=== PATIENT | male | born 1995 | race Caucasian/White ===

== ENCOUNTER 2021-07-22 19:09 | Inpatient (IN) ==
--- NOTE | 2021-07-22 20:34 | Emergency Department Note ---
Impression & Plan Depression with suicidal ideation ED Provider Note NAME: FELICITY MANUEL AGE: 25 SEX: M ARRIVES VIA: Walk-In INFORMANT: Patient ED PROVIDER(S): Champ Dominguez MD CHIEF COMPLAINT: Suicidal ideation PLAN: Disposition: Inpatient psychiatric admission. 3S. MEDICAL DECISION MAKING: The patient is a pleasant 25-year-old gentleman with a past medical history of chronic back pain/sciatica, history of polysubstance abuse with prior history of meth and opioid abuse, depression, suicidal ideation and attempt remotely where he reports his diagnosis may be bipolar disorder as well as borderline personality disorder but is unsure of if a definitive diagnosis has been assigned who presents to the emergency department accompanied by his for evaluation of suicidal ideation and depression that is been ongoing for the past 2 weeks and a more severe form where he has wanted to kill himself and 2 weeks ago considered cutting his wrists. He believes that his increased depression over the past month or so may have been provoked by his relapse into using meth at the end of March into April. He reports he has not been using meth since then. He reports he has tried antidepressants in the past but he believes that these have provoked his suicidal ideation and aggressive behaviors. He has chronic lumbar back pain which he describes as sciatica to his left leg and has followed with pain management and was recently prescribed topical Voltaren gel as well as Lamictal which he reports he did not take because of his concern that this may provoke mood changes. He does see a psychiatrist here but only recently establish care via telehealth. He previously followed in [place] where he lived for his mental health condition. He reports chronic nasal congestion likely due to allergies and denies any fevers, chills, nausea, vomiting, diarrhea. He denies any loss of bowel control or urinary retention. The patient recently this past summer. His is at the bedside. The patient is interested in inpatient treatment and is willing to be admitted voluntarily. On arrival patient is melancholy appearing but no acute distress, afebrile stable vital signs. He endorses suicidal ideation with intermittent thoughts of a plan. He reports feeling hopelessness but also describes that he wants help to stabilize his mood so he can move on with a normal life. He has mild discomfort of the left lower lumbar region extending distally in the sciatic distribution. There is no midline tenderness to palpation or step-offs. He has normal strength in bilateral lower extremities. L5 intact bilaterally. Reflexes within normal limits. WBC 14.4K, nonspecific. H/H and platelets within normal limits. She without metabolic acidosis. Electrolytes LFTs without significant abnormality. TSH within normal limits. UA with WBCs and leuk esterase albeit with epithelial cells present and no bacteria. Given the patient denies any acute urinary symptoms, reasonable to defer treatment at this time awaiting urine culture to inform need for treatment. Urine drug screen is positive for marijuana and otherwise unremarkable. COVID-19 PCR was negative. Influenza and RSV PCR also negative. Patient was medically cleared. Referral was made to S. for admission. The patient was accepted and admitted involuntarily under a 201. Triage Nursing notes reviewed and agree them. Prior medical records reviewed Vital Signs: reviewed and remarkable for no significant abnormalities Differential diagnosis: Mood disorder, infection, hypoglycemia, electrolyte abnormalities, cardiac sources, intracerebral event, toxicologic, trauma, neurologic, as well as other pathologies. ER treatment provided: See below. Laboratory studies: See below HPI: The patient is a pleasant 25-year-old gentleman with a past medical history of chronic back pain/sciatica, history of polysubstance abuse with prior history of meth and opioid abuse, depression, suicidal ideation and attempt remotely where he reports his diagnosis may be bipolar disorder as well as borderline personality disorder but is unsure of if a definitive diagnosis has been assigned who presents to the emergency department accompanied by his for evaluation of suicidal ideation and depression that is been ongoing for the past 2 weeks and a more severe form where he has wanted to kill himself and 2 weeks ago considered cutting his wrists. He believes that his increased depression over the past month or so may have been provoked by his relapse into using meth at the end of March into April. He reports he has not been using meth since then. He reports he has tried antidepressants in the past but he believes that these have provoked his suicidal ideation and aggressive behaviors. He has chronic lumbar back pain which he describes as sciatica to his left leg and has followed with pain management and was recently prescribed topical Voltaren gel as well as Lamictal which he reports he did not take because of his concern that this may provoke mood changes. He does see a psychiatrist here but only recently establish care via telehealth. He previously followed in [place] where he lived for his mental health condition. He reports chronic nasal congestion likely due to allergies and denies any fevers, chills, nausea, vomiting, diarrhea. He denies any loss of bowel control or urinary retention. The patient recently this past summer. His is at the bedside. The patient is interested in inpatient treatment and is willing to be admitted voluntarily. ROS: See above HPI for pertinent positives & negatives. A total of 10 systems reviewed and were otherwise negative. PAST MEDICAL HISTORY:See Below PAST SURGICAL HISTORY:See Below FAMILY HISTORY:See Below SOCIAL HISTORY:See Below HOME MEDICATIONS:See Below ALLERGIES:See Below VITALS:See Below PHYSICAL EXAMINATION: GENERAL: Awake, alert, melancholy-appearing, in no distress HENT: Normocephalic, atraumatic. Oropharynx unremarkable. EYES: Normal conjunctiva. Sclera non-icteric. NECK: Supple. No nuchal rigidity. FROM. No JVD. RESPIRATORY: Clear to auscultation. CARDIAC: Regular rate, normal rhythm. Extremities warm and well perfused. Pulses equal. ABDOMEN: Soft, non-distended. No tenderness to palpation. No rebound or guarding. No masses. RECTAL: Deferred. MUSCULOSKELETAL: Chest examination reveals no tenderness. The back is symmetrical on inspection without obvious abnormality. Mild left lower lumbar discomfort without discrete tenderness that extends distally in the sciatic distribution. No midline tenderness to palpation or step-offs. There is no CVA tenderness to palpation. No joint edema. LOWER EXTREMITIES: Calves are equal size bilaterally and non-tender. No edema. No discoloration. NEURO: Normal sensorium. No sensory or motor deficits noted. 5/5 strength and SILT x 4 extremities. DTRs wnl. L5 intact bilaterally. SKIN: No rash or jaundice noted. PSYCH: Endorses depression and active suicidal ideation with plan. Endorses hopelessness. Denies auditory hallucinations. Champ Dominguez MD Past Med/Surg History Medical History Chronic low back pain Depression Polysubstance abuse Sciatica Suicidal ideation Family History Other Family history non-contributory Social History Smoking Status: Current every day smoker Tobacco Type: Cigarettes and E-cigarettes / Vaping Allergies Allergies Allergy/AdvReac Type Severity Reaction Status Date / Time lithium Allergy Severe neurological Verified 07/22/21 19:40 complications tree nut Allergy Severe Anaphylaxis Verified 07/22/21 19:40 atorvastatin [From Lipitor] Allergy Intermediate Hives Verified 07/22/21 19:40 Home Meds Home Medications Medication Instructions Recorded Confirmed diclofenac sodium 75 mg 75 mg PO BID 07/22/21 07/22/21 tablet,delayed release Results & Data (ED) Vital Signs Vital Signs - 24 hr 07/22/21 19:18 07/22/21 23:35 Temperature 37.0 C Temperature Source Temporal Artery Scan Pulse Rate [Left Apical] 89 74 Respiratory Rate 16 20 Respiratory Effort / Characteristics Non-Labored Respiratory Depth Normal Blood Pressure [Left Arm] 130/85 116/73 Blood Pressure Mean [Left Arm] 100 87 Blood Pressure Position [Left Arm] Sitting Pulse Oximetry 95 96 Oxygen Delivery Method Room Air Room Air Sepsis Recent Fever Within 48 Hours No Sepsis New/Unexplained Change in Mental Status No Sepsis Action Taken by Nursing No Action Required Laboratory Data Attestation: I reviewed the patient's lab results. Result diagrams: 07/22/21 20:41 07/22/21 20:41 Lab Results 07/22/21 07/22/21 07/22/21 Range/Units 20:08 20:41 20:41 WBC 14.48 H (4.8-10.8) K/uL RBC 4.47 L (4.7-6.1) M/uL Hgb 15.3 (14.0-18.0) g/dL Hct 44.9 (42-52) % MCV 100.4 H (80-100) fL MCH 34.2 H (25-34) pg MCHC 34.1 (32-36) g/dL RDW Std Deviation 45.9 (36.4-46.3) fL RDW Coeff of Alek 12.6 (11.5-14.5) % Plt Count 302 (130-400) K/uL MPV 10.4 (7.4-10.4) fL Immature Gran % (Auto) 0.3 % Neut % (Auto) 69.1 % Lymph % (Auto) 20.5 % [place] % (Auto) 7.0 % Eos % (Auto) 2.9 % Baso % (Auto) 0.2 % Neut # (Auto) 10.00 H (1.4-6.5) K/uL Lymph # (Auto) 2.97 (1.2-3.4) K/uL [place] # (Auto) 1.01 H (0.11-0.59) K/uL Eos # (Auto) 0.42 (0-0.5) K/uL Baso # (Auto) 0.03 (0-0.2) K/uL Immature Gran # (Auto) 0.05 H (0.00-0.02) K/uL Sodium 139 (136-145) mmol/L Potassium 4.1 (3.5-5.1) mmol/L Chloride 106 (98-107) mmol/L Carbon Dioxide 29 (21-32) mmol/L Anion Gap 5.0 (3-11) BUN 14 (7-18) mg/dl Creatinine 0.93 (0.6-1.4) mg/dl Est Cr Clr Drug Dosing Not Reportable Est GFR ( Amer) 130.9 ml/min Est GFR (Non-Af Amer) 112.9 ml/min BUN/Creatinine Ratio 15.2 (10-20) Glucose 93 (70-99) mg/dl Calcium 8.8 (8.5-10.1) mg/dl Total Bilirubin 0.2 (0.2-1) mg/dl AST 21 (15-37) U/L ALT 39 (12-78) Alkaline Phosphatase 93 (45-117) U/L Total Protein 8.1 (6.4-8.2) gm/dl Albumin 3.6 (3.4-5.0) gm/dl Globulin 4.5 H (2.5-4.0) gm/dl Albumin/Globulin Ratio 0.8 L (0.9-2) TSH 3.890 (0.300-4.500) uIu/ml Urine Color Urine Appearance (Clear) Urine pH (4.5-7.5) Ur Specific [place] (1.000-1.030) Urine Protein (Negative) Urine Glucose (UA) (Negative) Urine Ketones (Negative) Urine Blood (Negative) Urine Nitrite (Negative) Urine Bilirubin (Negative) Urine Urobilinogen (Negative) Ur Leukocyte Esterase (Negative) Urine WBC (Auto) (0-5) /hpf Urine RBC (Auto) (0-4) /hpf U Hyaline Cast (Auto) (0-5) /lpf U Epithel Cells (Auto) (0-5) /lpf Urine Bacteria (Auto) (Negative) Salicylates (2.8-20) mg/dl Urine Opiates Screen (Neg) Ur Methadone, Qual (Neg) Acetaminophen (10-30) ug/ml Urine Barbiturates (Neg) Ur Phencyclidine (PCP) (Neg) U Amphetamin/Meth Scrn (Neg) MDMA (Ecstasy) Screen (Neg) U Benzodiazepines Scrn (Neg) Ur Cocaine Metabolite (Neg) U Marijuana (THC) Screen (Neg) Ethyl Alcohol mg/dL (0-3) mg/dl SARS-CoV-2 (PCR) NEGATIVE (Negative) Influenza Type A (PCR) Negative (Neg) Influenza Type B (PCR) Negative (Neg) RSV (RT-PCR) Negative (Neg) 07/22/21 07/22/21 07/22/21 Range/Units 20:41 20:41 20:54 WBC (4.8-10.8) K/uL RBC (4.7-6.1) M/uL Hgb (14.0-18.0) g/dL Hct (42-52) % MCV (80-100) fL MCH (25-34) pg MCHC (32-36) g/dL RDW Std Deviation (36.4-46.3) fL RDW Coeff of Alek (11.5-14.5) % Plt Count (130-400) K/uL MPV (7.4-10.4) fL Immature Gran % (Auto) % Neut % (Auto) % Lymph % (Auto) % [place] % (Auto) % Eos % (Auto) % Baso % (Auto) % Neut # (Auto) (1.4-6.5) K/uL Lymph # (Auto) (1.2-3.4) K/uL [place] # (Auto) (0.11-0.59) K/uL Eos # (Auto) (0-0.5) K/uL Baso # (Auto) (0-0.2) K/uL Immature Gran # (Auto) (0.00-0.02) K/uL Sodium (136-145) mmol/L Potassium (3.5-5.1) mmol/L Chloride (98-107) mmol/L Carbon Dioxide (21-32) mmol/L Anion Gap (3-11) BUN (7-18) mg/dl Creatinine (0.6-1.4) mg/dl Est Cr Clr Drug Dosing Est GFR ( Amer) ml/min Est GFR (Non-Af Amer) ml/min BUN/Creatinine Ratio (10-20) Glucose (70-99) mg/dl Calcium (8.5-10.1) mg/dl Total Bilirubin (0.2-1) mg/dl AST (15-37) U/L ALT (12-78) Alkaline Phosphatase (45-117) U/L Total Protein (6.4-8.2) gm/dl Albumin (3.4-5.0) gm/dl Globulin (2.5-4.0) gm/dl Albumin/Globulin Ratio (0.9-2) TSH (0.300-4.500) uIu/ml Urine Color Yellow Urine Appearance Clear (Clear) Urine pH 6.5 (4.5-7.5) Ur Specific [place] 1.021 (1.000-1.030) Urine Protein Negative (Negative) Urine Glucose (UA) Negative (Negative) Urine Ketones Negative (Negative) Urine Blood Negative (Negative) Urine Nitrite Negative (Negative) Urine Bilirubin Negative (Negative) Urine Urobilinogen Negative (Negative) Ur Leukocyte Esterase 2+ H (Negative) Urine WBC (Auto) >30 H (0-5) /hpf Urine RBC (Auto) 0-4 (0-4) /hpf U Hyaline Cast (Auto) 1-5 (0-5) /lpf U Epithel Cells (Auto) 10-20 H (0-5) /lpf Urine Bacteria (Auto) Negative (Negative) Salicylates < 1.7 L (2.8-20) mg/dl Urine Opiates Screen (Neg) Ur Methadone, Qual (Neg) Acetaminophen < 2 L (10-30) ug/ml Urine Barbiturates (Neg) Ur Phencyclidine (PCP) (Neg) U Amphetamin/Meth Scrn (Neg) MDMA (Ecstasy) Screen (Neg) U Benzodiazepines Scrn (Neg) Ur Cocaine Metabolite (Neg) U Marijuana (THC) Screen (Neg) Ethyl Alcohol mg/dL < 3.0 (0-3) mg/dl SARS-CoV-2 (PCR) (Negative) Influenza Type A (PCR) (Neg) Influenza Type B (PCR) (Neg) RSV (RT-PCR) (Neg) 07/22/21 Range/Units 20:54 WBC (4.8-10.8) K/uL RBC (4.7-6.1) M/uL Hgb (14.0-18.0) g/dL Hct (42-52) % MCV (80-100) fL MCH (25-34) pg MCHC (32-36) g/dL RDW Std Deviation (36.4-46.3) fL RDW Coeff of Alek (11.5-14.5) % Plt Count (130-400) K/uL MPV (7.4-10.4) fL Immature Gran % (Auto) % Neut % (Auto) % Lymph % (Auto) % [place] % (Auto) % Eos % (Auto) % Baso % (Auto) % Neut # (Auto) (1.4-6.5) K/uL Lymph # (Auto) (1.2-3.4) K/uL [place] # (Auto) (0.11-0.59) K/uL Eos # (Auto) (0-0.5) K/uL Baso # (Auto) (0-0.2) K/uL Immature Gran # (Auto) (0.00-0.02) K/uL Sodium (136-145) mmol/L Potassium (3.5-5.1) mmol/L Chloride (98-107) mmol/L Carbon Dioxide (21-32) mmol/L Anion Gap (3-11) BUN (7-18) mg/dl Creatinine (0.6-1.4) mg/dl Est Cr Clr Drug Dosing Est GFR ( Amer) ml/min Est GFR (Non-Af Amer) ml/min BUN/Creatinine Ratio (10-20) Glucose (70-99) mg/dl Calcium (8.5-10.1) mg/dl Total Bilirubin (0.2-1) mg/dl AST (15-37) U/L ALT (12-78) Alkaline Phosphatase (45-117) U/L Total Protein (6.4-8.2) gm/dl Albumin (3.4-5.0) gm/dl Globulin (2.5-4.0) gm/dl Albumin/Globulin Ratio (0.9-2) TSH (0.300-4.500) uIu/ml Urine Color Urine Appearance (Clear) Urine pH (4.5-7.5) Ur Specific [place] (1.000-1.030) Urine Protein (Negative) Urine Glucose (UA) (Negative) Urine Ketones (Negative) Urine Blood (Negative) Urine Nitrite (Negative) Urine Bilirubin (Negative) Urine Urobilinogen (Negative) Ur Leukocyte Esterase (Negative) Urine WBC (Auto) (0-5) /hpf Urine RBC (Auto) (0-4) /hpf U Hyaline Cast (Auto) (0-5) /lpf U Epithel Cells (Auto) (0-5) /lpf Urine Bacteria (Auto) (Negative) Salicylates (2.8-20) mg/dl Urine Opiates Screen Neg (Neg) Ur Methadone, Qual Neg (Neg) Acetaminophen (10-30) ug/ml Urine Barbiturates Neg (Neg) Ur Phencyclidine (PCP) Neg (Neg) U Amphetamin/Meth Scrn Neg (Neg) MDMA (Ecstasy) Screen Neg (Neg) U Benzodiazepines Scrn Neg (Neg) Ur Cocaine Metabolite Neg (Neg) U Marijuana (THC) Screen Pos H (Neg) Ethyl Alcohol mg/dL (0-3) mg/dl SARS-CoV-2 (PCR) (Negative) Influenza Type A (PCR) (Neg) Influenza Type B (PCR) (Neg) RSV (RT-PCR) (Neg) Administered Medications Discontinued Medications Acetaminophen (Acetaminophen 500 Mg Tab) 1,000 mg PO NOW STA Stop: 07/23/21 00:45 Last Admin: 07/23/21 00:53 Dose: 1,000 mg Documented by: [id number] Lidocaine (Lidocaine 5% 1 Patch) 1 patch TD NOW STA Stop: 07/23/21 00:45 Last Admin: 07/23/21 00:53 Dose: 1 patch Documented by: [id number] Discharge Plan Visit Data Chief Complaint: Mental Health Evaluation Stated Complaint: MENTAL HEALTH EVAL Discharge Problem: Depression with suicidal ideation Discharge Instructions Interventions: ED Discharge Assessment Last Done: 07/23/21 01:08 Forms Stand Alone Forms: [facility], Suicide Prevention Resources Prescriptions Prescriptions: No Action diclofenac sodium 75 mg Tablet,Delayed Release (Dr/Ec) 75 mg PO BID RF: 0 Referrals Referrals: Eduar Felton MD [Primary Care Provider] -
[2021-07-22 20:57] LABS: Basophils # (auto) 0.03 K/uL (0-0.2); Basophils % (auto) 0.2 %; Eosinophils # (auto) 0.42 K/uL (0-0.5); Eosinophils % (auto) 2.9 %; Hematocrit (blood only) 44.9 % (42-52); Hemoglobin 15.3 g/dL (14.0-18.0); Immature Granulocytes # (auto) 0.05 K/uL (0.00-0.02); Immature Granulocytes % (auto) 0.3 %; Lymphocytes # (auto) 2.97 K/uL (1.2-3.4); Lymphocytes % (auto) 20.5 %; Mean Corpuscular Hemoglobin 34.2 pg (25-34); Mean Corpuscular Hgb Conc 34.1 g/dL (32-36); Mean Corpuscular Volume 100.4 fL (80-100); Mean Platelet Volume 10.4 fL (7.4-10.4); Monocytes # (auto) 1.01 K/uL (0.11-0.59); Neutrophils % (auto) 69.1 %; Platelet Count 302 K/uL (130-400); RDW Coefficient of Variation 12.6 % (11.5-14.5); RDW Standard Deviation 45.9 fL (36.4-46.3); Red Blood Count 4.47 M/uL (4.7-6.1); White Blood Count 14.48 K/uL (4.8-10.8)
[2021-07-22 21:07] LABS: Influenza A virus by PCR Negative (Neg); Influenza B virus by PCR Negative (Neg); RSV by PCR Negative (Neg); SARS CoV2 RNA(COVID-19) InHosp NEGATIVE (Negative)
[2021-07-22 21:09] LABS: Appearance Urine Clear (Clear); Bacteria Urine Automated Negative (Negative); Bilirubin Urine Negative (Negative); Blood Urine Negative (Negative); Color Urine Yellow; Glucose Urine UA Negative (Negative); Ketones Urine Negative (Negative); Leukocyte Esterase Urine 2+ (Negative); Nitrite Urine Negative (Negative); Protein Urine Negative (Negative); RBC Urine Automated 0-4 /hpf (0-4); Specific Gravity Urine 1.021 (1.000-1.030); Urobilinogen Urine Negative (Negative); WBC Urine Automated >30 /hpf (0-5); pH Urine 6.5 (4.5-7.5)
[2021-07-22 21:16] LABS: Alanine Aminotransferase 39 (12-78); Albumin Level 3.6 gm/dl (3.4-5.0); Aspartate Aminotransferase 21 U/L (15-37); BUN Creatinine Ratio 15.2 (10-20); Blood Urea Nitrogen 14 mg/dl (7-18); Calcium 8.8 mg/dl (8.5-10.1); Carbon Dioxide 29 mmol/L (21-32); Chloride 106 mmol/L (98-107); Est GFR (African American) 130.9 ml/min; Est GFR (Non-African American) 112.9 ml/min; Glucose 93 mg/dl (70-99); Potassium 4.1 mmol/L (3.5-5.1); Sodium 139 mmol/L (136-145)
[2021-07-22 21:26] LABS: Albumin Globulin Ratio 0.8 (0.9-2); Alkaline Phosphatase 93 U/L (45-117); Globulin 4.5 gm/dl (2.5-4.0); Total Protein 8.1 gm/dl (6.4-8.2)
[2021-07-22 21:32] LABS: Acetaminophen < 2 ug/ml (10-30)
[2021-07-22 21:33] LABS: Salicylate < 1.7 mg/dl (2.8-20)
[2021-07-22 21:44] LABS: Amphetamines+Metham, Urine Neg (Neg); Barbiturates, Urine Neg (Neg); Benzodiazepine, Urine Neg (Neg); Cocaine, Urine Neg (Neg); MDMA (Ecstacy), Urine Neg (Neg); Methadone, Urine Neg (Neg); Opiate, Urine Neg (Neg); Phencyclidine, Urine Neg (Neg)
[2021-07-22 22:14] LABS: Bilirubin,Total 0.2 mg/dl (0.2-1)
[2021-07-23] MEDS ORDERED: LIDOCAINE 5% 1 PATCH TD STA (00:44)
[2021-07-23] MEDS ORDERED: ACETAMINOPHEN 500 MG TAB PO STA (00:44)
[2021-07-23] MEDS ORDERED: DICLOFENAC SODIUM 75 MG TABCR PO SCH (00:45)
[2021-07-23] MEDS ORDERED: MAGNESIUM HYDROXIDE SUSP 30 ML UDC PO PRN (01:04)
[2021-07-23] MEDS ORDERED: ALUMINUM/MAGNESIUM SUSP 30 ML UDC PO PRN (01:04)
[2021-07-23] MEDS ORDERED: hydrOXYzine HCl 25 MG TAB PO PRN (01:04)
[2021-07-23] MEDS ORDERED: BISMUTH SUBSALICYLATE LIQD 236 ML PO PRN (01:04)
[2021-07-23] MEDS ORDERED: SODIUM CHLORIDE 0.65% NA SOLN 45 ML (OCEAN) PRN (01:04)
[2021-07-23] MEDS: DICLOFENAC SODIUM 75 MG TABCR PO SCH ×2 (08:44→20:41)
--- NOTE | 2021-07-23 09:39 | History & Physical ---
Date of Service July 23, 2021 Impression / Recommendations Impression The patient is a 25 year old with a history of chronic back pain, polysubstance use disorder in early remission, anxiety, MDD, PTSD and possible BPD with a history of multiple prior psychiatric hospitalizations who was admitted for depression and SI with plan. The patient is deemed unstable and requires psychiatric hospitalization for diagnostic clarification, safety and stabilization, medication management and development of further coping skills. Diagnostically he presents with symptoms of impulsivity, mood and behavioral dysregulation, concrete thought process, and history of legal problems and subs tance use consistent with cluster B personality disorder as well as possible TBI versus mild intellectual disability as well significant history of early life trauma and PTSD. Given poor prior response to multiple medication trials and his identification of psychiatric medications as harmful as well as data showing limited benefit of medications in cluster B personality disorder will focus treatment on behavioral strategies, coping skills and therapy. Discussed treatment options in detail including medication options. He is not interested in any medications for depression, attention/impulsivity, nor PTSD but he is agreeable to trying propranolol for anxiety as needed. Discussed that his reaction tends to be toward anger and "fight" response when PTSD and anxiety is triggered so this seems like a good option. Discussed risks including potential for impacting mood, lowering BP, fainting, syncope. He consents to starting this. Discussed utilizing exercise, mindfulness and therapy to better manage emotions and build improved emotional regulation skills as well as working to maintain sobriety from opioids and methamphetamine. (1) Depression with suicidal ideation: (2) Cluster B personality disorder in adult: (3) GIANCARLO (generalized anxiety disorder): (4) Post traumatic stress disorder (PTSD): 07/23/21: The patient was admitted to the [facility] ([facility]) on q15 min checks (behavioral with suicide precautions) for safety. The patient will participate in group, recreational, and milieu therapies and will be of fered additional individual and family sessions as clinically appropriate. -Nicotine gum for NRT -lidocaine patches for back pain and will continue prior to admission Voltaren 75 mg BID -Start propranolol 10mg BID prn for anxiety (if BP can tolerate) -melatonin 3 mg qhs prn for insomnia -goal of developing plan to start swimming three days per week, meditate twice daily -work on finding therapist maybe through [employer] Strengths: motivated to engage in wellness practices to help with mood, supportive spouse Needs: outpatient therapy, improved mood regulation skills Risk Factors Assessment Acute risk is elevated in setting of SI with plan and multiple significant non- modifiable risk factors such as family hx of by suicide, chronic back pain and hx multiple prior psychiatric hospitalizations and trauma and impulsivity. Chronic risk moderate given non-modifiable risks. Most significant modifiable risk factor is improving mood, improved coping skills, additional outpatient support and remaining sober from opioid and methamphetamine substances. Male: Yes : Yes Do You Have Access To A Gun?: No Health Problems: Yes Mental Health Diagnoses: Yes Substance Use Disorders: Yes Previous Attempt: Yes Family History of Suicide: Yes Previous Psychiatric Hospitalization: Yes Hopelessness: No Smoker: Yes Protective Factors Assessment : Yes Employed: Yes ([employer]) Stable Relationships: Yes Supportive Family: Yes Psychiatric History Identifying Data ROSE MANUEL is a 25-year-old M who currently lives in [place] with his and her family, has a history of depression, anxiety, PTSD and possible BPD, and was admitted on 07/23/21 01:04 on a 201 voluntary commitment for worsening depression and SI. Chief Complaint "I'm having a midlife crisis". History of Present Illness Rose presented to the ED with his for worsening depression and SI with thoughts of crashing his car or cutting himself and bleeding to in the context of psychosocial stressors. 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 He feels the SI was triggered by Cymbalta which was started about four months ago and he stopped it 1 month ago because it was making him feel more aggressive and being angry toward his and causing him to feel more depressed and suicidal. He notes that psychiatric medications have never worked well for him and that he feels like after cymbalta was started to help with his mood and pain "that's when the imbalance started" and he states that he feels he became more angry and irritable and impulsive. He notes "I don't want to feel zoombified because when I don't have a clear head I don't make rationale decisions and then I end up in [facility]". He likes spending time with his , his dogs and working. He wishes he had more friends and social support. He works late at night and hasn't been sleeping well. Appetite decreased he notes he is very picky and when depressed he won't eat much. Currently he denies SI and feels safe in the hospital. He's hopeful to develop more coping skills and get established with a therapist as he feels he bottles up his emotions and then gets angry and needs to let them out. Psychiatric ROS notable for denial hx danay, no hx psychosis, tx for ADHD in childhood, hx trauma, hx abrupt mood swings "I can be happy one minute and then angry the next", hx self-harm in the past but none recently. Past Psychiatric History Current Psychiatric Diagnosis: Depression; Anxiety; PTSD; psychiatrist wondered about BPD Outpatient Services: psychiatrist via telemedicine through [facility]. no current therapist Previous Psych Admissions: endorses multiple hospitalizations starting at age 3 with hospitalization at the [facility]. He notes these experiences were very traumatic and he gets nervous that he will be forced to take medication. Hx hospitalizations more recently at [place] and in [place]. Do You Have Access To A Gun?: No History of Previous Suicide Attempt: Yes Describe Attempts in the Past: numerous past attempts, last was 3 years ago via OD and cutting Past Medication Trials: sertraline, fluoxetine, lexapro, Wellbutrin, Cymbalta, trazodone, remeron, clondine, gabapentin, depakote, lithium, lamictal, topimax, buspirone, hydroxyzine, Ritalin, risperidal, Adderall, seroquel (caused liver enzyme elevations), haldol, zyprexa He feels no psychiatric medications have ever been helpful and that they all cause his mood to worsen with increased anger and/or sedation or emergence of SI Additional Notes: hx self-harm via cutting, last time was 3 years ago Past Head Trauma/Neuro History History of Concussion/Seizure: Yes (minor concussion in childhood from football ) Allergies Allergy/AdvReac Type Severity Reaction Status Date / Time lithium Allergy Severe neurological Verified 07/22/21 19:40 complications tree nut Allergy Severe Anaphylaxis Verified 07/22/21 19:40 atorvastatin [From Lipitor] Allergy Intermediate Hives Verified 07/22/21 19:40 Home Medications Medication Instructions Recorded Confirmed Type diclofenac sodium 75 mg 75 mg PO BID 07/22/21 07/22/21 History tablet,delayed release Family History Family History of: Depression, Alcoholism/Drug Abuse, Suicide Attempts and Suicide Completion Family Mental Health History Comment: reports 3 family members have by sharon esquivel Alcohol History Hx of Alcohol Use Over the Past 12 Months: Yes (occassional 1-2 beer; monthly or less) AUDIT Total Score: 2 Smoking Use Have You Smoked or Used Tobacco Products in the Last 30 Days: Yes tobacco type: cigarettes and e-cigarettes Smoking Status: Current every day smoker Smoking packs per day: 1 Substance History Hx of Prescription Med Misuse Over the Past 12 Months: No Hx of Over the Counter Med Misuse Over the Past 12 Months: No Hx of Inhalent Misuse Over the Past 12 Months: No Hx of Organic Substance Use Over the Past 12 Months: Yes (Medical Marijuana) Hx of Illegal Substances/Street Drug Use Over Past 12 Months: Yes (Meth - last use in early May) Problems as a Result of Past Substance Use: None Identified relapse in May for 4 days smoked methamphetamine but then his "caught him" so he stopped and has been sober since then. Normally smokes a bowl of marijuana in the morning to help with pain. 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 robbery, destruction of property, possession of MJ; 6 mo m[facility] 6 yo ago) Hx Traumatic Life Events: Yes Patient History Medical History (Updated 07/23/21 @ 10:33 by Mari Sanz MD) Chronic low back pain Depression High cholesterol Polysubstance abuse Post traumatic stress disorder (PTSD) Sciatica Suicidal ideation Family History Other Family history non-contributory Social History Smoking Status: Current every day smoker Tobacco Type: Cigarettes and E-cigarettes / Vaping Preferred Language: Welsh Communication Ability: Effective Diesel Instructor Required: No Beliefs That Will Affect Care: None Feels Safe at Home: Yes Assistive Devices: Contacts and Glasses Review of Systems Review of Systems: All systems reviewed & are unremarkable except as noted in HPI & below (back pain ) Physical Exam Psychiatric: Orientation: alert and oriented x 3 Apperance: appropriately dressed and appropriately groomed Eye Contact: good eye contact Motor Behavior: steady gait and station and no abnormal motor movements Speech: normal rate/rhythm/volume of speech Affect: + angry affect Mood: + depressed mood and + anxious mood Thought Process: goal directed thought process and + concrete thought process Thought Content: reality based without delusions Suicidal Thoughts: denies suicidal thoughts Homicidal Thoughts: denies homicidal thoughts Hallucinations: no auditory hallucinations and no visual hallucinations Cognition: recent memory grossly intact, remote memory grossly intact, attention grossly intact and language grossly intact Estimated Intelligence: + below average estimated intelligence Insight: + impaired insight Judgement: + impaired judgement Vital Signs (Past 24 Hours): Last Vital Signs Temp 36.4 C 07/23/21 06:38 Pulse 90 07/23/21 06:38 Resp 18 07/23/21 06:38 BP 94/60 L 07/23/21 06:38 Pulse Ox 96 07/22/21 23:35 Exam Statement: A physical exam was performed in the ED by Dr. Dominguez for the purposes of medical clearance. I accept that physical as correct and adequate for the purposes of the inpatient physical exam. Results & Data ([facility]) Laboratory Results Laboratory Results - last 24 hr 07/22/21 07/22/21 07/22/21 20:08 20:41 20:41 WBC 14.48 H RBC 4.47 L Hgb 15.3 Hct 44.9 MCV 100.4 H MCH 34.2 H MCHC 34.1 RDW Std Deviation 45.9 RDW Coeff of Alek 12.6 Plt Count 302 MPV 10.4 Immature Gran % (Auto) 0.3 Neut % (Auto) 69.1 Lymph % (Auto) 20.5 Sawyer % (Auto) 7.0 Eos % (Auto) 2.9 Baso % (Auto) 0.2 Neut # (Auto) 10.00 H Lymph # (Auto) 2.97 Sawyer # (Auto) 1.01 H Eos # (Auto) 0.42 Baso # (Auto) 0.03 Immature Gran # (Auto) 0.05 H Sodium 139 Potassium 4.1 Chloride 106 Carbon Dioxide 29 Anion Gap 5.0 BUN 14 Creatinine 0.93 Est Cr Clr Drug Dosing Not Reportable Est GFR ( Amer) 130.9 Est GFR (Non-Af Amer) 112.9 BUN/Creatinine Ratio 15.2 Glucose 93 Calcium 8.8 Total Bilirubin 0.2 AST 21 ALT 39 Alkaline Phosphatase 93 Total Protein 8.1 Albumin 3.6 Globulin 4.5 H Albumin/Globulin Ratio 0.8 L TSH 3.890 Urine Color Urine Appearance Urine pH Ur Specific [place] Urine Protein Urine Glucose (UA) Urine Ketones Urine Blood Urine Nitrite Urine Bilirubin Urine Urobilinogen Ur Leukocyte Esterase Urine WBC (Auto) Urine RBC (Auto) U Hyaline Cast (Auto) U Epithel Cells (Auto) Urine Bacteria (Auto) Salicylates Urine Opiates Screen Ur Methadone, Qual Acetaminophen Urine Barbiturates Ur Phencyclidine (PCP) U Amphetamin/Meth Scrn MDMA (Ecstasy) Screen U Benzodiazepines Scrn Ur Cocaine Metabolite U Marijuana (THC) Screen U Marijuana THC Carboxy Drug Screen Comment Ethyl Alcohol mg/dL SARS-CoV-2 (PCR) NEGATIVE Influenza Type A (PCR) Negative Influenza Type B (PCR) Negative RSV (RT-PCR) Negative 07/22/21 07/22/21 07/22/21 20:41 20:41 20:54 WBC RBC Hgb Hct MCV MCH MCHC RDW Std Deviation RDW Coeff of Alek Plt Count MPV Immature Gran % (Auto) Neut % (Auto) Lymph % (Auto) Sawyer % (Auto) Eos % (Auto) Baso % (Auto) Neut # (Auto) Lymph # (Auto) Sawyer # (Auto) Eos # (Auto) Baso # (Auto) Immature Gran # (Auto) Sodium Potassium Chloride Carbon Dioxide Anion Gap BUN Creatinine Est Cr Clr Drug Dosing Est GFR ( Amer) Est GFR (Non-Af Amer) BUN/Creatinine Ratio Glucose Calcium Total Bilirubin AST ALT Alkaline Phosphatase Total Protein Albumin Globulin Albumin/Globulin Ratio TSH Urine Color Yellow Urine Appearance Clear Urine pH 6.5 Ur Specific [place] 1.021 Urine Protein Negative Urine Glucose (UA) Negative Urine Ketones Negative Urine Blood Negative Urine Nitrite Negative Urine Bilirubin Negative Urine Urobilinogen Negative Ur Leukocyte Esterase 2+ H Urine WBC (Auto) >30 H Urine RBC (Auto) 0-4 U Hyaline Cast (Auto) 1-5 U Epithel Cells (Auto) 10-20 H Urine Bacteria (Auto) Negative Salicylates < 1.7 L Urine Opiates Screen Ur Methadone, Qual Acetaminophen < 2 L Urine Barbiturates Ur Phencyclidine (PCP) U Amphetamin/Meth Scrn MDMA (Ecstasy) Screen U Benzodiazepines Scrn Ur Cocaine Metabolite U Marijuana (THC) Screen U Marijuana THC Carboxy Drug Screen Comment Ethyl Alcohol mg/dL < 3.0 SARS-CoV-2 (PCR) Influenza Type A (PCR) Influenza Type B (PCR) RSV (RT-PCR) 07/22/21 07/22/21 20:54 20:54 WBC RBC Hgb Hct MCV MCH MCHC RDW Std Deviation RDW Coeff of Alek Plt Count MPV Immature Gran % (Auto) Neut % (Auto) Lymph % (Auto) Sawyer % (Auto) Eos % (Auto) Baso % (Auto) Neut # (Auto) Lymph # (Auto) Sawyer # (Auto) Eos # (Auto) Baso # (Auto) Immature Gran # (Auto) Sodium Potassium Chloride Carbon Dioxide Anion Gap BUN Creatinine Est Cr Clr Drug Dosing Est GFR ( Amer) Est GFR (Non-Af Amer) BUN/Creatinine Ratio Glucose Calcium Total Bilirubin AST ALT Alkaline Phosphatase Total Protein Albumin Globulin Albumin/Globulin Ratio TSH Urine Color Urine Appearance Urine pH Ur Specific [place] Urine Protein Urine Glucose (UA) Urine Ketones Urine Blood Urine Nitrite Urine Bilirubin Urine Urobilinogen Ur Leukocyte Esterase Urine WBC (Auto) Urine RBC (Auto) U Hyaline Cast (Auto) U Epithel Cells (Auto) Urine Bacteria (Auto) Salicylates Urine Opiates Screen Neg Ur Methadone, Qual Neg Acetaminophen Urine Barbiturates Neg Ur Phencyclidine (PCP) Neg U Amphetamin/Meth Scrn Neg MDMA (Ecstasy) Screen Neg U Benzodiazepines Scrn Neg Ur Cocaine Metabolite Neg U Marijuana (THC) Screen Pos H U Marijuana THC Carboxy Pending Drug Screen Comment Pending Ethyl Alcohol mg/dL SARS-CoV-2 (PCR) Influenza Type A (PCR) Influenza Type B (PCR) RSV (RT-PCR) Current Inpatient Medications Current Inpatient Medications: Current Inpatient Medications Acetaminophen (Acetaminophen 325 Mg Tab) 650 mg PO Q4H PRN PRN Reason: Headache or Minor Fever Stop: 08/22/21 01:03 Al Hydrox/Mg Hydrox/Simethicone (Aluminum/Magnesium Susp 30 Ml Udc) 30 ml PO Q4H PRN PRN Reason: GI Upset Stop: 08/22/21 01:03 Bismuth Subsalicylate (Bismuth Subsalicylate Liqd 236 Ml) 15 ml PO PRN PRN PRN Reason: Loose Stool Stop: 08/22/21 01:03 Diclofenac Sodium (Diclofenac Sodium 75 Mg Tabcr) 75 mg PO BID [facility] Stop: 08/22/21 08:59 Last Admin: 07/23/21 08:44 Dose: 75 mg Documented by: Hydroxyzine HCl (Hydroxyzine Hcl 25 Mg Tab) 50 mg PO HSZ PRN PRN Reason: Insomnia Stop: 08/22/21 01:03 Hydroxyzine HCl (Hydroxyzine Hcl 25 Mg Tab) 25 mg PO Q4H PRN PRN Reason: Anxiety Stop: 08/22/21 01:03 Magnesium Hydroxide (Magnesium Hydroxide Susp 30 Ml Udc) 30 ml PO DAILY PRN PRN Reason: Constipation Stop: 08/22/21 01:03 Miscellaneous (Remove Lidoderm Patch) 1 ea N/A DAILY@2100 [facility] Stop: 08/22/21 20:59 Sodium Chloride (Sodium Chloride 0.65% Na Soln 45 Ml ([place])) 1 - 2 sprays NA PRN PRN PRN Reason: Nasal Dryness/Congestion Stop: 08/22/21 01:03
[2021-07-23] MEDS ORDERED: PROPRANOLOL HCL 10 MG TAB PO PRN (09:57)
[2021-07-23] MEDS ORDERED: MELATONIN 3 MG TAB PO PRN (09:59)
[2021-07-23] MEDS: LIDOCAINE 5% 1 PATCH TD SCH (10:59)
[2021-07-23] MEDS ORDERED: TROLAMINE SALICYLATE 10% CRM 255 APPLN/85 GM TUBE EXT PRN (13:17)
[2021-07-23] MEDS: ACETAMINOPHEN 325 MG TAB PO PRN (16:05)
[2021-07-23] MEDS ORDERED: OLANZapine 5 MG TABLET PO PRN (19:12)
[2021-07-23] MEDS ORDERED: OLANZapine 10 MG/2.1 ML SDV IM PRN (19:13)
[2021-07-23] MEDS: LIDOCAINE 4% CREAM 15 GM TUBE EXT PRN (19:30)
[2021-07-23] MEDS: hydrOXYzine HCl 25 MG TAB PO PRN (20:44)
[2021-07-23] MEDS: NICOTINE POLACRILEX 2 MG GUM MT PRN (20:46)
[2021-07-24] MEDS: LIDOCAINE 4% CREAM 15 GM TUBE EXT PRN ×3 (07:53→20:33)
[2021-07-24] MEDS: DICLOFENAC SODIUM 75 MG TABCR PO SCH ×2 (08:42→20:30)
[2021-07-24] MEDS: NICOTINE POLACRILEX 2 MG GUM MT PRN (09:17)
[2021-07-24] MEDS: LIDOCAINE 5% 1 PATCH TD SCH (09:40)
--- NOTE | 2021-07-24 14:43 | Psychiatric Progress Note ---
Date of Service July 24, 2021 Impression / Recommendations Impression The patient is a 25 year old with a history of chronic back pain, polysubstance use disorder in early remission, anxiety, MDD, PTSD and possible BPD with a history of multiple prior psychiatric hospitalizations who was admitted for depression and SI with plan. The patient is deemed unstable and requires psychiatric hospitalization for diagnostic clarification, safety and stabilization, medication management and development of further coping skills. Diagnostically he presents with symptoms of impulsivity, mood and behavioral dysregulation, concrete thought process, and history of legal problems and subs tance use consistent with cluster B personality disorder as well as possible TBI versus mild intellectual disability as well significant history of early life trauma and PTSD. Given poor prior response to multiple medication trials and his identification of psychiatric medications as harmful as well as data showing limited benefit of medications in cluster B personality disorder will focus treatment on behavioral strategies, coping skills and therapy. Discussed treatment options in detail including medication options. He is not interested in any medications for depression, attention/impulsivity, nor PTSD but he is agreeable to trying propranolol for anxiety as needed. Discussed that his reaction tends to be toward anger and "fight" response when PTSD and anxiety is triggered so this seems like a good option. Discussed risks including potential for impacting mood, lowering BP, fainting, syncope. He consents to starting this. Discussed utilizing exercise, mindfulness and therapy to better manage emotions and build improved emotional regulation skills as well as working to maintain sobriety from opioids and methamphetamine. As per Dr. Sanz. 07/24/21: care reviewed, poor frustration tolerance but hasn't acted out (1) Depression with suicidal ideation: (2) Cluster B personality disorder in adult: (3) GIANCARLO (generalized anxiety disorder): (4) Post traumatic stress disorder (PTSD): 07/24/21: continue current prns/treatment plan. 07/23/21: The patient was admitted to the [facility] ([facility]) on q15 min checks (behavioral with suicide precautions) for safety. The patient will participate in group, recreational, and milieu therapies and will be offered additional individual and family sessions as clinically appropriate. -Nicotine gum for NRT -lidocaine patches for back pain and will continue prior to admission Voltaren 75 mg BID -Start propranolol 10mg BID prn for anxiety (if BP can tolerate) -melatonin 3 mg qhs prn for insomnia -goal of developing plan to start swimming three days per week, meditate twice daily -work on finding therapist maybe through [facility] [employer] Strengths: motivated to engage in wellness practices to help with mood, supportive spouse Needs: outpatient therapy, improved mood regulation skills Risk Factors Assessment Male: Yes : Yes Do You Have Access To A Gun?: No Health Problems: Yes Mental Health Diagnoses: Yes Substance Use Disorders: Yes Previous Attempt: Yes Family History of Suicide: Yes Previous Psychiatric Hospitalization: Yes Hopelessness: No Smoker: Yes Protective Factors Assessment : Yes Employed: Yes ([employer]) Stable Relationships: Yes Supportive Family: Yes Interval History Identifying Information FELICITY MANUEL is a 25-year-old M who currently lives in [place] with his and her family, has a history of depression, anxiety, PTSD and possible BPD, and was admitted on 07/23/21 01:04 on a 201 voluntary commitment for worsening depression and SI. Chief Complaint "I have a lot of trauma to work through". Review of Systems Sleep Information Total Hours of Sleep: 6.5 Meal Information Percent Meal Consumed - Breakfast: 50 Percent Meal Consumed - Lunch: 100 Percent Meal Consumed - Dinner: 80 Subjective Subjective Patient was seen & assessed and interval progress reviewed with treatment team. can be loud and impulsively swear, requested a 72 hour notice last night but did not sign, "I just haven't been away from my ". He discussed impact of trauma on his nervous system and self esteem and how shapes reactivity and makes it difficult to trust in relationships. He related his past history with psychiatry and past response/side effects to medications. He also processed his guilt over how he has been treating his and his recent relapse. Physical Exam Psychiatric Orientation: alert and oriented x 3 Apperance: appropriately dressed and appropriately groomed Eye Contact: good eye contact Motor Behavior: steady gait and station and no abnormal motor movements Speech: normal rate/rhythm/volume of speech Affect: + depressed affect Mood: + anxious mood Thought Process: + concrete thought process Thought Content: reality based without delusions Suicidal Thoughts: denies suicidal thoughts Homicidal Thoughts: denies homicidal thoughts Hallucinations: no auditory hallucinations and no visual hallucinations Cognition: recent memory grossly intact, remote memory grossly intact, attention grossly intact and language grossly intact Estimated Intelligence: + below average estimated intelligence Insight: + impaired insight Judgement: + impaired judgement Vital Signs (Past 24 Hours) Last Vital Signs Temp 36.4 C L 12/31/21 06:46 Pulse 70 07/24/21 06:47 Resp 16 07/24/21 06:46 BP 94/64 L 07/24/21 06:47 Pulse Ox 96 07/22/21 23:35 Results & Data ([facility]) Current Inpatient Medications Current Inpatient Medications: Current Inpatient Medications Acetaminophen (Acetaminophen 325 Mg Tab) 650 mg PO Q4H PRN PRN Reason: Headache or Minor Fever Stop: 08/22/21 01:03 Last Admin: 07/23/21 16:05 Dose: 650 mg Documented by: Al Hydrox/Mg Hydrox/Simethicone (Aluminum/Magnesium Susp 30 Ml Udc) 30 ml PO Q4H PRN PRN Reason: GI Upset Stop: 08/22/21 01:03 Bismuth Subsalicylate (Bismuth Subsalicylate Liqd 236 Ml) 15 ml PO PRN PRN PRN Reason: Loose Stool Stop: 08/22/21 01:03 Diclofenac Sodium (Diclofenac Sodium 75 Mg Tabcr) 75 mg PO BID [facility] Stop: 08/22/21 08:59 Last Admin: 07/24/21 08:42 Dose: 75 mg Documented by: Hydroxyzine HCl (Hydroxyzine Hcl 25 Mg Tab) 50 mg PO HSZ PRN PRN Reason: Insomnia Stop: 08/22/21 01:03 Last Admin: 07/23/21 20:44 Dose: 50 mg Documented by: Hydroxyzine HCl (Hydroxyzine Hcl 25 Mg Tab) 25 mg PO Q4H PRN PRN Reason: Anxiety Stop: 08/22/21 01:03 Lidocaine (Lidocaine 5% 1 Patch) 1 patch TD QAM [facility] Stop: 08/22/21 09:59 Last Admin: 07/24/21 09:40 Dose: 1 patch Documented by: Lidocaine (Lidocaine 4% Cream 15 Gm Tube) 1 appln EXT BID PRN PRN Reason: pain Stop: 08/22/21 13:15 Last Admin: 07/24/21 07:53 Dose: 1 appln Documented by: Magnesium Hydroxide (Magnesium Hydroxide Susp 30 Ml Udc) 30 ml PO DAILY PRN PRN Reason: Constipation Stop: 08/22/21 01:03 Melatonin (Melatonin 3 Mg Tab) 3 mg PO HS PRN PRN Reason: Sleep Stop: 08/22/21 09:58 Miscellaneous (Remove Lidoderm Patch) 1 ea N/A DAILY@2100 [place] Stop: 08/22/21 20:59 Last Admin: 07/23/21 20:52 Dose: Not Given Documented by: Miscellaneous (Remove Lidoderm Patch) 1 ea N/A DAILY@2100 [place] Stop: 08/22/21 20:59 Last Admin: 07/23/21 20:52 Dose: Not Given Documented by: Nicotine Polacrilex (Nicotine Polacrilex 2 Mg Gum) 1 piece MT PRN PRN PRN Reason: nicotine cravings Stop: 08/22/21 09:57 Last Admin: 07/24/21 09:17 Dose: 1 piece Documented by: Olanzapine (Olanzapine 5 Mg Tablet) 5 mg PO BID PRN PRN Reason: Agitation Stop: 08/22/21 20:59 Olanzapine (Olanzapine 10 Mg/2.1 Ml Sdv) 10 mg IM DAILY PRN PRN Reason: Agitation Stop: 08/22/21 19:12 Propranolol HCl (Propranolol Hcl 10 Mg Tab) 10 mg PO BID PRN PRN Reason: Anxiety/Agitation Stop: 08/22/21 09:59 Last Admin: 07/23/21 14:39 Dose: 10 mg Documented by: Sodium Chloride (Sodium Chloride 0.65% Na Soln 45 Ml (Hyde)) 1 - 2 sprays NA PRN PRN PRN Reason: Nasal Dryness/Congestion Stop: 08/22/21 01:03 Trolamine Salicylate (Trolamine Salicylate 10% Crm 255 Appln/85 Gm Tube) 1 appln EXT DAILY PRN PRN Reason: Pain Stop: 08/22/21 13:16 Mental Health & Subst Abuse Tx Therapist Name of Therapist: None Instructional Support Assistant Name of Instructional Support Assistant: None Post Discharge Appointments Primary Care Physician Name Of Family Doctor: Aguila
[2021-07-24] MEDS: ACETAMINOPHEN 325 MG TAB PO PRN (18:15)
[2021-07-24] MEDS: hydrOXYzine HCl 25 MG TAB PO PRN (21:27)
[2021-07-25 07:06] LABS: Marijuana Quant, GCMS Urine 878 ng/mL (<5)
[2021-07-25] MEDS: DICLOFENAC SODIUM 75 MG TABCR PO SCH (08:22)
[2021-07-25] MEDS: LIDOCAINE 4% CREAM 15 GM TUBE EXT PRN (08:24)
[2021-07-25] MEDS: LIDOCAINE 5% 1 PATCH TD SCH (08:29)
--- NOTE | 2021-07-25 09:17 | Discharge Summary ---
Date of Service July 25, 2021 History of Present Illness As per Dr. Sanz on admission: Rose presented to the ED with his for worsening depression and SI with thoughts of crashing his car or cutting himself and bleeding to in the context of psychosocial stressors. 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 He feels the SI was triggered by Cymbalta which was started about four months ago and he stopped it 1 month ago because it was making him feel more aggressive and being angry toward his and causing him to feel more depressed and suicidal. He notes that psychiatric medications have never worked well for him and that he feels like after cymbalta was started to help with his mood and pain "that's when the imbalance started" and he states that he feels he became more angry and irritable and impulsive. He notes "I don't want to feel zoombified because when I don't have a clear head I don't make rationale decisions and then I end up in custodial". He likes spending time with his , his dogs and working. He wishes he had more friends and social support. He works late at night and hasn't been sleeping well. Appetite decreased he notes he is very picky and when depressed he won't eat much. Currently he denies SI and feels safe in the hospital. He's hopeful to develop more coping skills and get established with a therapist as he feels he bottles up his emotions and then gets angry and needs to let them out. Psychiatric ROS notable for denial hx danay, no hx psychosis, tx for ADHD in childhood, hx trauma, hx abrupt mood swings "I can be happy one minute and then angry the next", hx self-harm in the past but none recently. Physical Exam Psychiatric See admission H&P and DOD summary. Vital Signs (Past 24 Hours) Last Vital Signs Temp 36.9 C 07/25/21 06:53 Pulse 64 07/25/21 06:54 Resp 16 07/25/21 06:53 BP 108/65 07/25/21 06:54 Pulse Ox 96 07/22/21 23:35 Principal Diagnosis PTSD Psychiatric Data See daily stay summary. In short, safety was maintained and the patient was cooperative with care. Medication changes included trial of prn medications for anxiety and sleep, propranolol and Vistaril. His sleep improved significantly and he was less focussed on pain. He was resistant to any additional mood stabilizer or antidepressant trials and in all fairness he reports past side effects. A family session was held with his and safety plan was completed prior to discharge. On the unit he seemed loud and easily annoyed at times but there was no evidence of danay or psychosis. He consistently denied suicidal thoughts and stated he wanted to work on processing his trauma in the outpatient setting. He agrees not to drive if feeling upset/overwhelmed or having suicidal thoughts. He is leaving on a holiday weekend and plans to see Dr. Felton and psychiatrist within 30 days. A referral has been made to [facility] for outpatient therapy but the office is closed so he will need to call for the follow up appointment. He stated that he is out of diclofenac at home and was provided a 1 month prescription as a courtesy as holiday and PCP office is closed. Day of Discharge Assessment Today the patient voices readiness for discharge. They note improvement in mood and deny thoughts to harm self or others. Thoughts remain organized and they are improved from admission. There is no evidence of psychosis. They agree to take mediations as prescribed and keep follow-up appointments. They are stable for discharge to outpatient level of care. Transition of Care Transition Of Care Record: was reviewed with the patient Advance Directives Advance Directives Information Provided: Yes Advance Directives: No Mental Health Advance Directive: No Advance Directives on File: No (advance directives) Living Will: No Power of Communications Maintainer: No Advance Directives Reason:: Declines as Mental Health Visit. Risk Factors Assessment Male: Yes : Yes Do You Have Access To A Gun?: No Health Problems: Yes Mental Health Diagnoses: Yes Substance Use Disorders: Yes Previous Attempt: Yes Family History of Suicide: Yes Previous Psychiatric Hospitalization: Yes Hopelessness: No Smoker: Yes Protective Factors Assessment : Yes Employed: Yes ([employer]) Stable Relationships: Yes Supportive Family: Yes Tobacco Cessation at Discharge Tobacco Cessation Medication Prescribed at Discharge: Offered & Pt Refused Total Time Total Time Spent: Greater Than 30 Minutes Total Time Includes: Examination of the patient, Discharge Planning and Medication Reconciliation Discharge Data Lab Results 07/22/21 07/22/21 07/22/21 20:08 20:41 20:41 WBC 14.48 H RBC 4.47 L Hgb 15.3 Hct 44.9 MCV 100.4 H MCH 34.2 H MCHC 34.1 RDW Std Deviation 45.9 RDW Coeff of Alek 12.6 Plt Count 302 MPV 10.4 Immature Gran % (Auto) 0.3 Neut % (Auto) 69.1 Lymph % (Auto) 20.5 Deuel % (Auto) 7.0 Eos % (Auto) 2.9 Baso % (Auto) 0.2 Neut # (Auto) 10.00 H Lymph # (Auto) 2.97 Deuel # (Auto) 1.01 H Eos # (Auto) 0.42 Baso # (Auto) 0.03 Immature Gran # (Auto) 0.05 H Sodium 139 Potassium 4.1 Chloride 106 Carbon Dioxide 29 Anion Gap 5.0 BUN 14 Creatinine 0.93 Est Cr Clr Drug Dosing Not Reportable Est GFR ( Amer) 130.9 Est GFR (Non-Af Amer) 112.9 BUN/Creatinine Ratio 15.2 Glucose 93 Calcium 8.8 Total Bilirubin 0.2 AST 21 ALT 39 Alkaline Phosphatase 93 Total Protein 8.1 Albumin 3.6 Globulin 4.5 H Albumin/Globulin Ratio 0.8 L TSH 3.890 Urine Color Urine Appearance Urine pH Ur Specific [place] Urine Protein Urine Glucose (UA) Urine Ketones Urine Blood Urine Nitrite Urine Bilirubin Urine Urobilinogen Ur Leukocyte Esterase Urine WBC (Auto) Urine RBC (Auto) U Hyaline Cast (Auto) U Epithel Cells (Auto) Urine Bacteria (Auto) Salicylates Urine Opiates Screen Ur Methadone, Qual Acetaminophen Urine Barbiturates Ur Phencyclidine (PCP) U Amphetamin/Meth Scrn MDMA (Ecstasy) Screen U Benzodiazepines Scrn Ur Cocaine Metabolite U Marijuana (THC) Screen U Marijuana THC Carboxy Drug Screen Comment Ethyl Alcohol mg/dL SARS-CoV-2 (PCR) NEGATIVE Influenza Type A (PCR) Negative Influenza Type B (PCR) Negative RSV (RT-PCR) Negative 07/22/21 07/22/21 07/22/21 20:41 20:41 20:54 WBC RBC Hgb Hct MCV MCH MCHC RDW Std Deviation RDW Coeff of Alek Plt Count MPV Immature Gran % (Auto) Neut % (Auto) Lymph % (Auto) Deuel % (Auto) Eos % (Auto) Baso % (Auto) Neut # (Auto) Lymph # (Auto) Deuel # (Auto) Eos # (Auto) Baso # (Auto) Immature Gran # (Auto) Sodium Potassium Chloride Carbon Dioxide Anion Gap BUN Creatinine Est Cr Clr Drug Dosing Est GFR ( Amer) Est GFR (Non-Af Amer) BUN/Creatinine Ratio Glucose Calcium Total Bilirubin AST ALT Alkaline Phosphatase Total Protein Albumin Globulin Albumin/Globulin Ratio TSH Urine Color Yellow Urine Appearance Clear Urine pH 6.5 Ur Specific [place] 1.021 Urine Protein Negative Urine Glucose (UA) Negative Urine Ketones Negative Urine Blood Negative Urine Nitrite Negative Urine Bilirubin Negative Urine Urobilinogen Negative Ur Leukocyte Esterase 2+ H Urine WBC (Auto) >30 H Urine RBC (Auto) 0-4 U Hyaline Cast (Auto) 1-5 U Epithel Cells (Auto) 10-20 H Urine Bacteria (Auto) Negative Salicylates < 1.7 L Urine Opiates Screen Ur Methadone, Qual Acetaminophen < 2 L Urine Barbiturates Ur Phencyclidine (PCP) U Amphetamin/Meth Scrn MDMA (Ecstasy) Screen U Benzodiazepines Scrn Ur Cocaine Metabolite U Marijuana (THC) Screen U Marijuana THC Carboxy Drug Screen Comment Ethyl Alcohol mg/dL < 3.0 SARS-CoV-2 (PCR) Influenza Type A (PCR) Influenza Type B (PCR) RSV (RT-PCR) 07/22/21 07/22/21 20:54 20:54 WBC RBC Hgb Hct MCV MCH MCHC RDW Std Deviation RDW Coeff of Alek Plt Count MPV Immature Gran % (Auto) Neut % (Auto) Lymph % (Auto) Deuel % (Auto) Eos % (Auto) Baso % (Auto) Neut # (Auto) Lymph # (Auto) Deuel # (Auto) Eos # (Auto) Baso # (Auto) Immature Gran # (Auto) Sodium Potassium Chloride Carbon Dioxide Anion Gap BUN Creatinine Est Cr Clr Drug Dosing Est GFR ( Amer) Est GFR (Non-Af Amer) BUN/Creatinine Ratio Glucose Calcium Total Bilirubin AST ALT Alkaline Phosphatase Total Protein Albumin Globulin Albumin/Globulin Ratio TSH Urine Color Urine Appearance Urine pH Ur Specific [place] Urine Protein Urine Glucose (UA) Urine Ketones Urine Blood Urine Nitrite Urine Bilirubin Urine Urobilinogen Ur Leukocyte Esterase Urine WBC (Auto) Urine RBC (Auto) U Hyaline Cast (Auto) U Epithel Cells (Auto) Urine Bacteria (Auto) Salicylates Urine Opiates Screen Neg Ur Methadone, Qual Neg Acetaminophen Urine Barbiturates Neg Ur Phencyclidine (PCP) Neg U Amphetamin/Meth Scrn Neg MDMA (Ecstasy) Screen Neg U Benzodiazepines Scrn Neg Ur Cocaine Metabolite Neg U Marijuana (THC) Screen Pos H U Marijuana THC Carboxy 878 H Drug Screen Comment SEE NOTE Ethyl Alcohol mg/dL SARS-CoV-2 (PCR) Influenza Type A (PCR) Influenza Type B (PCR) RSV (RT-PCR) Hospital Course (1) Depression with suicidal ideation: (2) Cluster B personality disorder in adult: (3) GIANCARLO (generalized anxiety disorder): (4) Post traumatic stress disorder (PTSD): 07/24/21: continue current prns/treatment plan. 07/23/21: The patient was admitted to the [facility] ([facility] health unit) on q15 min checks (behavioral with suicide precautions) for safety. The patient will participate in group, recreational, and milieu therapies and will be offered additional individual and family sessions as clinically appropriate. -Nicotine gum for NRT -lidocaine patches for back pain and will continue prior to admission Voltaren 75 mg BID -Start propranolol 10mg BID prn for anxiety (if BP can tolerate) -melatonin 3 mg qhs prn for insomnia -goal of developing plan to start swimming three days per week, meditate twice daily -work on finding therapist maybe through [facility] & Subst Abuse Tx Therapist Name of Therapist: [facility] Therapist's Therapy Appointment Comment: will follow up directly on 07/27/21 Salesforce Specialist Name of Salesforce Specialist: None Post Discharge Appointments Primary Care Physician Name Of Family Doctor: Rocio Sheehan Primary Care Provider Appointment Comment: wants to schedule own appointment Smoking Cessation Counseling Tobacco Cessation Medication Prescribed at Discharge: Offered & Pt Refused Contact Information Discharge Discharge Address: [address] [place] [address] Discharge Plan Discharge Items Patient Disposition: Home - Self-Care Reason For Visit: MENTAL HEALTH EVAL Discharge Diagnosis: PTSD Activity: Resume your previous activity Non-emergency contact: Primary Care Provider, Psychiatrist and Therapist Call non-emergency contact if: you have any medication questions Follow-up/Referrals: Eduar Felton MD [Primary Care Provider] - Diet: Regular Addtl Attending Provider Instructions: SPECIAL CARE INSTRUCTIONS: 1. Follow through with your scheduled aftercare appointments. If unable to keep an appointment, please call to reschedule. 2. Take your medication only as prescribed. Medication should not be changed or stopped without the approval of your doctor. In the event of worsening symptoms or concerns about side effects, contact your doctor immediately. 3. Utilize new healthy coping skills, anger management skills, and stress management skills learned during your hospitalization. Journal feelings and process them with a support person. Identify stressors or situations that may result in relapse, deterioration or inappropriate behaviors and develop a plan to deal with those issues. 4. If your coping skills are ineffective and you are in crisis, contact your outpatient providers for direction. If unable to reach your providers, please call the [facility] CRISIS LINE AT , go to the [facility] walk-in center at [address], [place], or go to the closest Emergency Room. 5. Avoid alcohol and un-prescribed drugs. 6. You have been provided with the Mental Health Advance Directives Pamphlet for your review. 7. Your condition is stable for discharge to outpatient level of care, but recovery is an ongoing process. Ifthoughts to harm yourself or others return, follow the safety plan developed during your stay. Planning for a safe return home includes securing weapons. Our treatment team recommends weaponsbe removed from the home until your outpatient provider reassesses your progress. In rare cases where the items themselvescannot be removed, guns and ammunitionshould be secured separatelyand keys stored by a reliable personoutside of the home. If you were admitted on an involuntary commitment, the police or other legal authorities may be involved in this process. AFTERCARE APPOINTMENTS: * Please call your insurance company prior to your scheduled appointment to confirm your aftercare providers are covered. Take your insurance information to your appointments. WHO TO CALL AND WHEN: Medical Emergencies: For questions or emergencies related to your hospital stay, please contact the Inpatient Behavioral Health Unit at [phone]. A psychiatric nursing aide is on-call 14/02 for the Behavioral Health Unit for emergencies At any time you feel your situation is an emergency, you may also call 911 immediately. Pending Studies at Discharge: No Stand-Alone Forms: [facility], Smoking Cessation Medications and DC Order Prescriptions: New propranolol 10 mg Tablet 10 mg PO BID PRN (Reason: anxiety) 30 Days Qty: 14 RF: 0 hydroxyzine HCl 25 mg Tablet 50 mg PO HS PRN (Reason: sleep) 30 Days Qty: 30 RF: 1 Continued diclofenac sodium 75 mg Tablet,Delayed Release (Dr/Ec) 75 mg PO BID 30 Days Qty: 60 RF: 0 Discharge Orders: Discharge Order (Routine); Ordered 07/25/21 Ordered By: Alexandra Hernandez Admission Data Admit Date/Time: 07/23/21 01:04 Attending Provider: Alexandra Hernandez Admit Provider: Mari Sanz Primary Care Provider: Eduar Felton Other Interventions: Discharge Summary Assessment (RN) Last Done: 07/25/21 09:24 PSY Interdisciplinary Discharge Planning Last Done: 07/25/21 09:21 Coding Level of Care Code 83301 D/C day mgmt > 30 min Diagnoses Depression with suicidal ideation F32.A; R45.851 Cluster B personality disorder in adult F60.9 GIANCARLO (generalized anxiety disorder) F41.1 Post traumatic stress disorder (PTSD) F43.10
== END 2021-07-25 10:30 | disposition home or self-care (01) | DRG 882 ==
LOC: ED 19:09 → 3S 07-23 01:04 → SUATTDRO 07-23 01:04 → 3S 07-23 01:08